=== PATIENT | female | born 1980 | race Caucasian/White ===

== ENCOUNTER 2017-04-23 12:48 | Inpatient (IN) | payer MEDICAID, MEDICARE ==
[~2017-04-23] VITALS: Ht 167.6 cm; Wt 80.3 kg
[~2017-04-23 12:48] MED LIST: ABIL1TAB12 PO; ABIL20TA2; ATIV0.5T OR; BENZ0.5T PO; CELE10TA PO; GABA100C PO; INVE9TAB PO; KLON0.5T PO; LITH45TASA PO; QUET30XR; RISP2TAB12 OR; RISP37INJ IM; RISP3TAB20 PO; [UNRECOGNIZED DRUG - CODE] PO
[2017-04-23 14:10] LABS: MEAN CORPUSCULAR HEMOGLOBIN 32.1 pg (27.0-33.0); MEAN CORPUSCULAR HGB CONC 35.6 g/dl (32.0-36.5); RED CELL DISTRIBUTION WIDTH 12.3 % (11.5-14.5); WHITE BLOOD COUNT 7.7 K/mm3 (4.0-10.0)
[2017-04-23 14:23] LABS: METHADONE URINE NEGATIVE (NEGATIVE)
[2017-04-23 14:25] LABS: CONTROL LINE HCG INT CTR LINE PRESENT
[2017-04-23 14:42] LABS: ALBUMIN/GLOBULIN RATIO 1.11 (1.00-1.93); ALKALINE PHOSPHATASE 107 U/L (45-117); ALT/SGPT 74 U/L (12-78); ANION GAP 7 MEQ/L (8-16); AST/SGOT 31 U/L (15-37); BILIRUBIN,DIRECT 0.2 MG/DL (0.0-0.2); BILIRUBIN,TOTAL 0.9 MG/DL (0.2-1.0); BLOOD UREA NITROGEN 7 MG/DL (7-18); CARBON DIOXIDE LEVEL 26 MEQ/L (21-32); CHLORIDE LEVEL 108 MEQ/L (98-107); CREATININE FOR GFR 0.71 MG/DL (0.55-1.02); GLOMERULAR FILTRATION RATE > 60.0 (>60); GLUCOSE, FASTING 80 MG/DL (70-105); POTASSIUM SERUM 3.5 MEQ/L (3.5-5.1); SODIUM LEVEL 141 MEQ/L (136-145); TOTAL PROTEIN 7.6 GM/DL (6.4-8.2)
[2017-04-23 15:02] LABS: LITHIUM LEVEL < 0.20 MEQ/L (0.60-1.20)
[2017-04-23] MEDS ORDERED: ARIP1TAB4 PO (16:10)
[2017-04-23] MEDS ORDERED: PALI1TAB2 PO (16:10)
[2017-04-23] MEDS ORDERED: LITH300C (16:10)
[2017-04-23] MEDS ORDERED: LITH150C (16:10)
[2017-04-23] MEDS ORDERED: PALI1TAB PO (16:10)
[2017-04-23] MEDS ORDERED: LITH150C PO (17:46)
[2017-04-23] MEDS ORDERED: PATIENT COMMENT (17:46)
[2017-04-23] MEDS ORDERED: HALOPERIDOL 5 MG TAB PO PRN (19:15)
[2017-04-23] MEDS ORDERED: MAALOX 30 ML SUSP *UDC PO PRN (19:15)
[2017-04-23] MEDS ORDERED: MOM 30ML SUSPENSION UDC PO PRN (19:15)
[2017-04-23] MEDS ORDERED: LORazepam 1 MG TAB PO PRN (19:15)
[2017-04-23] MEDS ORDERED: ACETAMINOPHEN TAB 650MG DOSE (2X325MG) PO PRN (19:15)
[2017-04-23] MEDS ORDERED: traZODone 50 MG TAB PO PRN (19:15)
[2017-04-23] MEDS ORDERED: ARIPiprazole 10 MG TAB PO SCH (21:00)
[2017-04-23 21:55] VITALS: BP 121/87
[2017-04-24 07:10] VITALS: BP 129/85
--- NOTE | 2017-04-24 09:18 | HPEPDOC ---
Medical History and Physical Date of Admission Apr 23, 2017 at 19:09 History and Physical PCP: Dr Campos ATTENDING: Dr. Ciaran Turner HPI: 37yoF admitted to [facility] for schizoaffective disorder, being medically examined today. No acute medical complaints today. Denies any fevers, chills, weakness, fatigue, FERMIN, CP, SOB, cough, palpitations, abdominal pain, N/V/D or changes in bowel or bladder habits. PMHx: Bipolar disorder Schizoaffective disorder Anxiety Depression Psychosis PSHX: Colposcopy Tubal ligation Colonoscopy SOCHX: Resides in: [facility] Marital Status: Kids: 3 Employment: Unemployed Tobacco use: Denies ETOH: Denies Illicit Drugs: Denies IV Drug Use: Denies Tattoos done unprofessionally: 1 FAMHX: Mother: Alive, well Father: Alive, hypertension Siblings: One brother , patient states overdose Children: Alive, unknown Unexpected deaths due to medical reasons: None. ROS: As noted in HPI, otherwise 11pt ROS of systems reviewed and remarkable only for LMP 03/30/17. PE: GEN: 37 yo F, appears stated age. Well-nourished, well developed. No acute distress. Anxious, avoids eye contact, tangential speech. HEENT: Normocephalic, atraumatic. Pupils are equal, round, and reactive to light. Extraocular movements are intact. No nystagmus appreciated. Sclera are nonicteric. Conjunctiva without injection. Nose midline. Nasal turbinates without bogginess. EACs both patent BL. TMs both visualized and frank with good cone of light, no bulging or erythema. No facial asymmetry. Moist mucous membranes. Dentition fair. Pharynx pink and moist, no cobblestoning. Neck supple , trachea midline. No lymphadenopathy or thyromegaly appreciated. CHEST: Regular rate and rhythm, +S1, +S2 LUNGS: Clear to auscultation bilaterally. No wheezes, rales, or rhonchi. Breathing appears symmetric and easy. Patient is speaking in full sentences. No accessory muscle use. ABD: Round, soft, non-tender, non-distended. +Bowel sounds throughout. No rebound or guarding. No costovertebral angle tenderness. EXT: Pulses 2+ bilaterally dorsalis pedis and radial. No lower extremity edema appreciated. SKIN: [place], dry, warm. Capillary refill <2sec. No rashes. NEURO: Alert and oriented x 3. Cranial nerves III-XII are intact. No focal deficits appreciated. EKG: Pending. A&P: 37yoF admitted to [facility] for schizoaffective disorder 1. Psych. Plan per Psychiatry. Obtain baseline EKG to assure the safety of psychiatric medications as they can prolong the QT interval. 2. Tattoo done unprofessionally. Patient agrees to HIV and hepatitis screening. 3. Follow up with PCP on discharge. 4. Staff member Mendoza present throughout exam. Vital Signs Vital Signs Date Time Temp Pulse Resp B/P (MAP) Pulse Ox O2 Delivery O2 Flow Rate FiO2 04/24/17 07:10 97.3 68 16 129/85 (100) 04/23/17 21:21 98 Laboratory Data Labs 24H Laboratory Tests 2 04/23/17 13:34: Anion Gap 7L, Glomerular Filtration Rate > 60.0, Calcium Level 9.0, Aspartate Amino Transf (AST/SGOT) 31, Alanine Aminotransferase (ALT/SGPT) 74, Alkaline Phosphatase 107, Total Bilirubin 0.9, Direct Bilirubin 0.2, Total Protein 7.6, Albumin 4.0, Albumin/Globulin Ratio 1.11, Thyroid Stimulating Hormone (TSH) 0.955, Human Chorionic Gonadotropin, Qual NEGATIVE, Salicylates Level < 1.7L, Acetaminophen Level < 2.0L, Winton Level < 0.20L, Ethyl Alcohol Level 0.003 04/23/17 13:41: Urine Amphetamines Screen NEGATIVE, Urine Benzodiazepines Screen NEGATIVE, Urine Opiates Screen NEGATIVE, Urine Methadone Screen NEGATIVE, Urine Barbiturates Screen NEGATIVE, Urine Phencyclidine Screen NEGATIVE, Urine Cocaine Metabolite Screen NEGATIVE, Urine Cannabinoids Screen NEGATIVE CBC/BMP Laboratory Tests 04/23/17 13:34 Red Blood Count 4.74, Mean Corpuscular Volume 90.0, Mean Corpuscular Hemoglobin 32.1, Mean Corpuscular Hemoglobin Concent 35.6, Red Cell Distribution Width 12.3 Home Medications Scheduled Aripiprazole (Aripiprazole) 2 Mg Tab, 2 MG PO QHS Winton Carbonate (Winton Carbonate) 150 Mg Cap, 150 MG PO QHS Paliperidone (Paliperidone ER) 3 Mg Tab, 3 MG PO DAILY DOSE INCREASED FROM 1.5MG TO 3MG, SUPPOSED TO START April Paliperidone (Paliperidone ER) 1.5 Mg Tab, 1.5 MG PO DAILY TAKING ONCE DAILY FOR 14 DAYS, THEN INCREASING TO 3MG ON April Miscellaneous Medications [Patient Comment] PT STATES HAS NOT HAD MEDS FOR A FEW DAYS, NEEDS TO TALK TO HER DOCTOR ABOUT THEM. Allergies Coded Allergies: No Known Allergies (Verified Allergy, Unknown, 08/02/08) Brissa Sultana Apr 24, 2017 09:18
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
[2017-04-24 18:00] VITALS: BP 138/85
[2017-04-24] MEDS ORDERED: PALIPERIDONE 3 MG ER TAB (INVEGA) PO SCH (21:00)
[2017-04-25 06:28] VITALS: BP 114/75
[2017-04-25] MEDS: SERTRALINE HCL 25 MG TABLET PO SCH (08:39)
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
[2017-04-25 18:00] VITALS: BP 124/81
[2017-04-26 06:30] VITALS: BP 109/60
[2017-04-26] MEDS: SERTRALINE HCL 25 MG TABLET PO SCH (08:02)
[2017-04-26 18:00] VITALS: BP 118/82
[2017-04-27 06:59] VITALS: BP 117/76
[2017-04-27] MEDS: SERTRALINE HCL 25 MG TABLET PO SCH (07:54)
--- NOTE | 2017-04-27 13:20 | IPN ---
DATE: 04/26/2017 CHIEF COMPLAINT: Says feels okay. SUBJECTIVE: Seen for followup, in the presence of staff. Says feels okay, but is somewhat vague about this, does say had a better night, but that difficulties with eating on occasions, related to the quality of air in the place. MENTAL STATUS EXAMINATION: Neat. Generally cooperative. No agitation. No psychomotor retardation. Displays no evidence of any thoughts of harming herself or anyone else. Some looseness of associations in terms of her thought are observed. Judgment is quite questionable, as is insight. ASSESSMENT: Schizoaffective disorder. PLAN: Continue current care and observations. Continue to encourage participation in the unit. VITAL SIGNS: Blood pressure 109/60. Pulse 70. Temperature 98.7.
[2017-04-27 18:00] VITALS: BP 113/80
[2017-04-28 07:25] VITALS: BP 110/72
[2017-04-28] MEDS: SERTRALINE HCL 25 MG TABLET PO SCH (08:09)
--- NOTE | 2017-04-28 08:45 | IPN ---
DATE: 04/27/2017 CHIEF COMPLAINT: Says feels okay. SUBJECTIVE: Is seen for followup in the presence of staff. Says feels okay but is a bit vague about this. Indicates woke up a little early, went back to sleep. She also spoke of a visitor yesterday, whom she is acquainted with. Suggests that there was food in the room, that disappeared, she is not quite sure what happened. MENTAL STATUS EXAMINATION: Neat, cooperative. No agitation. No psychomotor retardation. There is looseness of associations in her thoughts. Affect is restricted range. Denies any thoughts of harming herself. Does not appear to be internally preoccupied. No homicidal ideas or intents. Has delusions quite possibly. Judgment and insight remain compromised. ASSESSMENT: Schizoaffective disorder. PLAN: Continue current care, including sertraline, dapiprazole, both may need to be increased. She is to be encouraged to participate in activities in the unit.
[2017-04-28 18:15] VITALS: BP 119/73
[2017-04-28] MEDS: ARIPiprazole 15 MG TAB (AbiLIFY) PO SCH (20:10)
[2017-04-29 06:24] VITALS: BP 130/86
[2017-04-29] MEDS: SERTRALINE HCL 25 MG TABLET PO SCH (08:17)
--- NOTE | 2017-04-29 12:03 | IPN ---
DATE: 04/28/2017 37-year-old female with history of bipolar disorder, current episode mixed. Vital signs: Stable. New test results: There are no test results. CURRENT MEDICATIONS: Patient continues to be on a low dose of Zoloft, 25 mg by mouth daily and Abilify 7.5 mg by mouth daily at bedtime. The reason that she is on only 25 mg of Zoloft is because this automatic typewriter inspector does not want to activate her by giving her a higher dose of antidepressants since this could trigger sonal. She has requested today to this automatic typewriter inspector to decrease the Abilify to 5 mg by mouth daily at bedtime but this automatic typewriter inspector explained to her that is important for her to continue taking 7.5 mg by mouth daily at bedtime. MENTAL STATUS EXAMINATION: Patient is a 37-year-old female who is alert, cooperative, pleasant, oriented times three. Speech is spontaneous and fluent. Language skills are fair. Thought process is organized, rationale (a little bit less irrational than before). Language skills are fair. Thought content is coherent at this time. Description of association: There is no loosening of association. Abstract, reasoning and computation are fair. Description of abnormal or psychotic thoughts: She is less delusional, she continues to complain about physical problems, specifically related to her genitourinary and gastrointestinal systems. Her judgment and insight are slightly improving. Orientation: She is oriented times three. Recent and remote memory are intact. Attention span and concentration are fair. Language is normal. Fund of knowledge is fair. Mood: "I am doing better". Affect is congruent to mood. ASSESSMENT: Patient is less delusional, more organized than before. According to care managers, her mother has stated that she saw her doing well last Friday and they are willing to take her back home. Discharge will be discussed with patient tomorrow and if she is ready to leave, she will be discharged under the care of her parents. TIME SPENT: 30 minutes. ERICA
[2017-04-29 18:08] VITALS: BP 107/71
[2017-04-29] MEDS: ARIPiprazole 15 MG TAB (AbiLIFY) PO SCH (20:14)
[2017-04-30 06:47] VITALS: BP 123/71
[2017-04-30] MEDS: SERTRALINE HCL 25 MG TABLET PO SCH (08:01)
[2017-04-30] MEDS ORDERED: SERT25TA PO (09:48)
[2017-04-30] MEDS ORDERED: TRAZO50TA PO (09:48)
[2017-04-30] MEDS ORDERED: ARIP15TAB PO (09:48)
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
--- NOTE | 2017-04-30 14:53 | MHIPN ---
DATE OF SERVICE: 04/29/2017 37-year-old female with history of bipolar disorder. Vital signs: Stable. New test results: There are no test results. CURRENT MEDICATIONS: The patient continues to be on the same medications: Zoloft 25 mg by mouth daily and Abilify 7.5 mg by mouth nightly. MENTAL STATUS EXAMINATION: The patient is alert, oriented times three, cooperative with interview, pleasant, and engaging. Properly attired with good hygiene and good eye contact. Her speech is normal, coherent. Her thought process is intact and organized. Her thought process is coherent. The patient has no suicidal ideation and denies homicidal ideation. She denies thought delusions and denies auditory or visual hallucinations. Her attention and concentration are fair. Her memory is intact. Abstract thinking and computation are fair. Insight and judgment are fair. Impulse control is fair. ASSESSMENT: The patient has had a big improvement, and she is currently stable, not suicidal, not a danger to self or others. Discussed with the patient the possibility of discharging her tomorrow, and she has agreed. MANAGEMENT PLAN: Continue on the same medications and make arrangements for discharge tomorrow if the patient continues to be stable as she is now. Will monitor closely and will followup.
== END 2017-04-30 11:00 | disposition home or self-care (01) | DRG 885 ==
LOC: M ED 12:48 → M ED INP 19:09 → M PSY 21:53
PROVIDERS: ADMIT Psychiatry & Neurology Psychiatry; ATTEND Psychiatry & Neurology Psychiatry
DX: F25.0 Schizoaffective disorder, bipolar type (principal); F43.9 Reaction to severe stress, unspecified; Z79.899 Other long term (current) drug therapy; Z98.51 Tubal ligation status

== ENCOUNTER 2017-08-23 19:47 | Inpatient (IN) | payer MEDICARE, MEDICAID ==
[~2017-08-23] VITALS: Ht 167.6 cm; Wt 76.0 kg
[~2017-08-23 19:47] MED LIST changes: +ARIP15TAB PO; +ARIP1TAB4 PO; +LITH150C; +LITH150C PO; +LITH300C; +PALI1TAB PO; +PALI1TAB2 PO; +PATIENT COMMENT; +SERT25TA PO; +TRAZO50TA PO
[2017-08-23 21:33] LABS: MEAN CORPUSCULAR HEMOGLOBIN 30.8 pg (27.0-33.0); MEAN CORPUSCULAR HGB CONC 34.6 g/dl (32.0-36.5); MEAN CORPUSCULAR VOLUME 89.1 fl (80.0-96.0); PLATELET COUNT, AUTOMATED 260 10^3/uL (150-450); RED CELL DISTRIBUTION WIDTH 13.2 % (11.5-14.5); WHITE BLOOD COUNT 7.9 10^3/uL (4.0-10.0)
[2017-08-23 21:56] LABS: CONTROL LINE HCG INT CTR LINE PRESENT
[2017-08-23 21:58] LABS: METHADONE URINE NEGATIVE (NEGATIVE)
[2017-08-23 22:09] LABS: ALBUMIN 4.3 GM/DL (3.2-5.2); ALBUMIN/GLOBULIN RATIO 1.39 (1.00-1.93); ALKALINE PHOSPHATASE 86 U/L (45-117); ALT/SGPT 46 U/L (12-78); ANION GAP 10 MEQ/L (8-16); AST/SGOT 24 U/L (7-37); BILIRUBIN,DIRECT 0.2 MG/DL (0.0-0.2); BILIRUBIN,TOTAL 0.8 MG/DL (0.2-1.0); BLOOD UREA NITROGEN 8 MG/DL (7-18); CALCIUM LEVEL 9.2 MG/DL (8.5-10.1); CARBON DIOXIDE LEVEL 25 MEQ/L (21-32); CHLORIDE LEVEL 106 MEQ/L (98-107); GLOMERULAR FILTRATION RATE > 60.0 (>60); GLUCOSE, FASTING 84 MG/DL (70-105); POTASSIUM SERUM 3.4 MEQ/L (3.5-5.1); SODIUM LEVEL 141 MEQ/L (136-145); TOTAL PROTEIN 7.4 GM/DL (6.4-8.2)
[2017-08-23] MEDS ORDERED: MAALOX 30 ML SUSP *UDC PO PRN (23:00)
[2017-08-23] MEDS ORDERED: ACETAMINOPHEN TAB 650MG DOSE (2X325MG) PO PRN (23:00)
[2017-08-23] MEDS ORDERED: MOM 30ML SUSPENSION UDC PO PRN (23:00)
[2017-08-23] MEDS ORDERED: traZODone 50 MG TAB PO PRN (23:00)
[2017-08-23] MEDS ORDERED: OLANZapine ORAL DISINTEGRATING TAB 5MG PO PRN (23:00)
[2017-08-24 00:56] VITALS: BP 119/82
[2017-08-24 06:55] VITALS: BP 130/81
[2017-08-24] MEDS: LORazepam 1 MG TAB PO SCH ×3 (09:18→21:00)
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
[2017-08-24 18:00] VITALS: BP 134/70
[2017-08-25 06:00] VITALS: BP 125/72
--- NOTE | 2017-08-25 07:58 | HPE ---
DATE OF ADMISSION: 08/23/2017 DATE OF ADMISSION: HISTORY OF PRESENT ILLNESS: Please refer to the psychiatric history and evaluation for further details on this admission. This examination and history is intended for medical issues which may need treatment, followup or consultation on this 37-year-old female. ALLERGIES: No known drug allergies. SOCIAL HISTORY: She resides in [place]. She is . Does not drink alcohol. She does not use recreational drugs. She does not smoke cigarettes. PAST MEDICAL HISTORY: Bipolar disorder. Schizoaffective disorder. Anxiety. Depression. Psychosis. PAST SURGICAL HISTORY: section. Colposcopy. Tubal ligation. Colonoscopy. FAMILY HISTORY: Mother alive and well. Father alive, has hypertension. Siblings: One brother decreased patient states from overdose. HOME MEDICATIONS: None. LABORATORY DATA: CBC is normal. Sodium 141, potassium 3.4, chloride 106, CO2 25, BUN 3, creatinine 0.70. Toxicology was negative. REVIEW OF SYSTEMS: 10-systems review was done and was unremarkable. PHYSICAL EXAMINATION: [id number] cooperative female in no acute distress. Height 66 inches, weight 76 kg, BMI 27. The patient is alert and oriented times three. Pupils equal and reactive to light. Extraocular movements intact. Cornea and sclera clear. Conjunctiva normal. No facial asymmetry. Pharynx, tongue, and gums pink and moist. Tongue is midline. Neck is supple, without lymphadenopathy. No thyromegaly. No goiter Chest clear to auscultation, without wheeze or retraction. Heart is regular. Abdomen benign. Bowel sounds positive. /Rectal: Not done. Extremities show equal strength. Full range of motion. no cyanosis, clubbing or edema. Peripheral pulses equal and palpable bilaterally. Skin is warm and dry. Cranial nerves III through XII grossly intact. IMPRESSION AND PLAN: 1. Psychiatric: Plan per psychiatry. 2. No acute medical issues.
[2017-08-25] MEDS: LORazepam 1 MG TAB PO SCH ×3 (08:25→21:00)
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
[2017-08-25 18:00] VITALS: BP 118/78
[2017-08-26] MEDS: LORazepam 1 MG TAB PO SCH ×3 (07:40→21:00)
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
[2017-08-26 18:00] VITALS: BP 124/68
[2017-08-27 06:29] VITALS: BP 127/86
[2017-08-27] MEDS: LORazepam 1 MG TAB PO SCH (08:17)
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
[2017-08-27] MEDS ORDERED: OLAN5ZYD PO (12:04)
[2017-08-27] MEDS ORDERED: ARIP10TAB PO (12:04)
[2017-08-27] MEDS ORDERED: TRAZO50TA PO (12:04)
[2017-08-28] MEDS ORDERED: ARIPiprazole 10 MG TAB PO SCH (09:00)
== END 2017-08-27 13:00 | disposition home or self-care (01) | DRG 885 ==
LOC: M ED 21:01 → M ED INP 22:56 → M PSY 08-24 00:25
PROVIDERS: ADMIT Psychiatry & Neurology Psychiatry; ATTEND Psychiatry & Neurology Psychiatry
DX: F25.9 Schizoaffective disorder, unspecified (principal); F43.10 Post-traumatic stress disorder, unspecified; Z91.19 Patient's noncompliance with other medical treatment and regimen; Z79.899 Other long term (current) drug therapy; Z98.51 Tubal ligation status

== ENCOUNTER 2017-12-04 11:12 | Emergency (ER) | payer MEDICARE, MEDICAID | END 2017-12-04 12:25 | disposition home or self-care (01) | LOC: M ED 11:12 | DX: F43.0 Acute stress reaction (principal); F31.9 Bipolar disorder, unspecified; Z79.899 Other long term (current) drug therapy | CPT/HCPCS: 99284 ==

== ENCOUNTER 2017-12-05 11:02 | Inpatient (IN) | payer MEDICARE, MEDICAID ==
[2017-12-05] MEDS ORDERED: LORazepam 2 MG/ML VIAL (J2060) As Ordered (12:55)
[2017-12-05] MEDS ORDERED: HALOPERIDOL 5 MG/ML VIAL (J1630) As Ordered (12:55)
[2017-12-05] MEDS ORDERED: diphenhydrAMINE INJ 50MG/ML VIAL (J1200) IM (13:00)
[2017-12-05] MEDS ORDERED: HALOPERIDOL 5 MG/ML VIAL (J1630) IM (13:15)
[2017-12-05] MEDS ORDERED: LORazepam 2 MG/ML VIAL (J2060) IM (13:15)
[2017-12-05 13:17] LABS: HEMATOCRIT 45.4 % (36.0-47.0); HEMOGLOBIN 16.2 g/dl (12.0-16.0); MEAN CORPUSCULAR HEMOGLOBIN 31.6 pg (27.0-33.0); MEAN CORPUSCULAR HGB CONC 35.7 g/dl (32.0-36.5); MEAN CORPUSCULAR VOLUME 88.5 fl (80.0-96.0); PLATELET COUNT, AUTOMATED 343 10^3/uL (150-450); RED BLOOD COUNT 5.13 10^6/uL (4.00-5.40); RED CELL DISTRIBUTION WIDTH 12.5 % (11.5-14.5); WHITE BLOOD COUNT 14.4 10^3/uL (4.0-10.0)
[2017-12-05 13:48] LABS: AMPHETAMINES LEVEL URINE NEGATIVE (NEGATIVE); BARBITURATES URINE NEGATIVE (NEGATIVE); BENZODIAZEPINES URINE NEGATIVE (NEGATIVE); CANNABINOIDS URINE NEGATIVE (NEGATIVE); COCAINE METABOLITE URINE NEGATIVE (NEGATIVE); METHADONE URINE NEGATIVE (NEGATIVE); OPIATES URINE NEGATIVE (NEGATIVE); PHENCYCLIDINE URINE NEGATIVE (NEGATIVE)
[2017-12-05 13:57] LABS: ALBUMIN/GLOBULIN RATIO 1.39 (1.00-1.93); ALKALINE PHOSPHATASE 102 U/L (45-117); ALT/SGPT 37 U/L (12-78); ANION GAP 11 MEQ/L (8-16); AST/SGOT 23 U/L (7-37); BILIRUBIN,DIRECT 0.2 MG/DL (0.0-0.2); BLOOD UREA NITROGEN 18 MG/DL (7-18); CALCIUM LEVEL 9.1 MG/DL (8.5-10.1); CARBON DIOXIDE LEVEL 21 MEQ/L (21-32); CHLORIDE LEVEL 110 MEQ/L (98-107); CREATININE FOR GFR 0.84 MG/DL (0.55-1.30); ETHYL ALCOHOL (ETHANOL) < 0.003 % (0.000-0.010); GLOMERULAR FILTRATION RATE > 60.0 (>60); GLUCOSE, FASTING 107 MG/DL (70-100); SALICYLATE LEVEL < 1.7 MG/DL (5.0-30.0); SODIUM LEVEL 142 MEQ/L (136-145); TOTAL PROTEIN 8.6 GM/DL (6.4-8.2)
[2017-12-05 14:09] LABS: ACETAMINOPHEN LEVEL < 2.0 UG/ML (10.0-30.0)
[2017-12-05] MEDS: LORazepam 2 MG TAB PO (15:30)
[2017-12-05] MEDS ORDERED: MAALOX 30 ML SUSP *UDC PO (18:15)
[2017-12-05] MEDS ORDERED: MOM 30ML SUSPENSION UDC PO (18:15)
[2017-12-05] MEDS ORDERED: OLANZapine ORAL DISINTEGRATING TAB 5MG PO (18:15)
[2017-12-05] MEDS ORDERED: traZODone 50 MG TAB PO (18:15)
[2017-12-05] MEDS ORDERED: ACETAMINOPHEN TAB 650MG DOSE (2X325MG) PO (18:15)
[2017-12-06] MEDS: ARIPiprazole 2 MG TAB PO (20:03)
[2017-12-07] MEDS: ARIPiprazole 2 MG TAB PO (20:26)
[2017-12-07] MEDS: LORazepam 0.5 MG TAB PO (22:09)
[2017-12-08 12:07] LABS: HEPATITIS B SURFACE ANTIGEN NEGATIVE (NEGATIVE)
[2017-12-08 12:33] LABS: HEPATITIS C VIRUS ABY INDEX 0.1 INDEX (<0.8)
[2017-12-08 12:34] LABS: HEPATITIS B CORE ANTIBODY IGM NEGATIVE (NEGATIVE); HIV 1&2 SCREEN CENTAUR NEGATIVE (NEGATIVE)
[2017-12-08 12:35] LABS: HEPATITIS A ANTIBODY IGM NEGATIVE (NEGATIVE)
[2017-12-08] MEDS: ARIPiprazole 2 MG TAB PO (20:06)
[2017-12-09] MEDS: LORazepam 0.5 MG TAB PO ×2 (05:54→23:05)
[2017-12-09] MEDS: ARIPiprazole 2 MG TAB PO (20:48)
[2017-12-10 10:28] LABS: HEMATOCRIT 40.8 % (36.0-47.0); HEMOGLOBIN 14.4 g/dl (12.0-16.0); MEAN CORPUSCULAR HEMOGLOBIN 31.2 pg (27.0-33.0); MEAN CORPUSCULAR HGB CONC 35.3 g/dl (32.0-36.5); MEAN CORPUSCULAR VOLUME 88.5 fl (80.0-96.0); PLATELET COUNT, AUTOMATED 209 10^3/uL (150-450); RED BLOOD COUNT 4.61 10^6/uL (4.00-5.40); RED CELL DISTRIBUTION WIDTH 12.3 % (11.5-14.5)
[2017-12-10] MEDS: ARIPiprazole 2 MG TAB PO (20:18)
[2017-12-12] MEDS: ARIPiprazole 10 MG TAB PO (21:00)
[2017-12-13] MEDS: ARIPiprazole 10 MG TAB PO ×2 (08:18→19:34)
[2017-12-14] MEDS: ARIPiprazole 10 MG TAB PO ×2 (08:09→20:10)
[2017-12-15] MEDS: ARIPiprazole 10 MG TAB PO ×2 (08:04→20:31)
[2017-12-15] MEDS: QUEtiapine FUMARATE 100 MG TAB PO ×2 (09:00→15:59)
[2017-12-15] MEDS: PALIPERIDONE 3 MG ER TAB (INVEGA) PO (20:33)
[2017-12-16] MEDS: PALIPERIDONE 3 MG ER TAB (INVEGA) PO ×2 (08:04→20:01)
[2017-12-16] MEDS: ARIPiprazole 10 MG TAB PO ×2 (08:04→20:01)
[2017-12-16 11:40] LABS: CHOLESTEROL LEVEL 155 MG/DL (<200); CHOLESTEROL RISK RATIO 2.924 (<5); HDL CHOLESTEROL 53 MG/DL (>40); NON-HDL-C 102 MG/DL; TRIGLYCERIDES LEVEL 155 MG/DL (<150)
[2017-12-16 12:11] LABS: ESTIMATED AVERAGE GLUCOSE 88 MG/DL (60-110); HEMOGLOBIN A1c 4.7 %
[2017-12-16 15:59] LABS: ALBUMIN 3.8 GM/DL (3.2-5.2); ALBUMIN/GLOBULIN RATIO 1.23 (1.00-1.93); ALKALINE PHOSPHATASE 88 U/L (45-117); ALT/SGPT 38 U/L (12-78); ANION GAP 12 MEQ/L (8-16); AST/SGOT 20 U/L (7-37); BASO # 0.1 10^3/uL (0.0-0.2); BASO % 1.4 % (0.0-1.0); BILIRUBIN,DIRECT < 0.1 MG/DL (0.0-0.2); BILIRUBIN,TOTAL 0.4 MG/DL (0.2-1.0); BLOOD UREA NITROGEN 12 MG/DL (7-18); CALCIUM LEVEL 8.8 MG/DL (8.5-10.1); CARBON DIOXIDE LEVEL 22 MEQ/L (21-32); CHLORIDE LEVEL 109 MEQ/L (98-107); CREATININE FOR GFR 0.71 MG/DL (0.55-1.30); EOS # 0.1 10^3/uL (0.0-0.50); EOS % 1.8 % (0.0-3.0); GLOMERULAR FILTRATION RATE > 60.0 (>60); GLUCOSE, FASTING 71 MG/DL (70-100); HEMATOCRIT 42.4 % (36.0-47.0); HEMOGLOBIN 14.8 g/dl (12.0-16.0); IMMATURE GRANULOCYTE % 0.3 % (0-3.0); LYMPH # 1.5 10^3/uL (1.5-4.5); LYMPH % 21.9 % (24.0-44.0); MEAN CORPUSCULAR HEMOGLOBIN 31.6 pg (27.0-33.0); MEAN CORPUSCULAR HGB CONC 34.9 g/dl (32.0-36.5); MEAN CORPUSCULAR VOLUME 90.4 fl (80.0-96.0); MONO # 0.5 10^3/uL (0.0-0.8); NEUTROPHILS # 4.4 10^3/uL (1.8-7.7); NEUTROPHILS % 66.6 % (36.0-66.0); PLATELET COUNT, AUTOMATED 165 10^3/uL (150-450); POTASSIUM SERUM 3.8 MEQ/L (3.5-5.1); RED BLOOD COUNT 4.69 10^6/uL (4.00-5.40); RED CELL DISTRIBUTION WIDTH 12.8 % (11.5-14.5); SODIUM LEVEL 143 MEQ/L (136-145); TOTAL PROTEIN 6.9 GM/DL (6.4-8.2); WHITE BLOOD COUNT 6.6 10^3/uL (4.0-10.0)
[2017-12-17] MEDS: LORazepam 0.5 MG TAB PO (02:19)
[2017-12-17] MEDS: PALIPERIDONE 3 MG ER TAB (INVEGA) PO ×2 (08:02→20:19)
[2017-12-17] MEDS: ARIPiprazole 10 MG TAB PO ×2 (08:02→20:19)
[2017-12-18] MEDS: ARIPiprazole 10 MG TAB PO (08:07)
[2017-12-18] MEDS: PALIPERIDONE 3 MG ER TAB (INVEGA) PO (08:07)
== END 2017-12-18 11:30 | disposition home or self-care (01) | DRG 885 ==
LOC: M PSY 12-08 17:18 → M ED 11:02 → M PSY 16:55
DX: F25.0 Schizoaffective disorder, bipolar type (principal); D72.829 Elevated white blood cell count, unspecified

== ENCOUNTER → 2018-01-20 | Outpatient (REF) | payer MEDICARE, MEDICAID ==
[2018-01-20 22:12] LABS: CHLAMYDIA DNA AMPLIFICATION NEGATIVE (NEGATIVE); GC DNA AMPLIFICATION NEGATIVE (NEGATIVE)
== END ==
LOC: M SFHCPLAZ 17:05
DX: Z01.419 Encounter for gynecological examination (general) (routine) without abnormal findings (principal)
CPT/HCPCS: 87591

== ENCOUNTER → 2018-01-20 | Outpatient (REF) | payer MEDICARE, MEDICAID | LOC: M LAB REF 17:52 | DX: Z12.4 Encounter for screening for malignant neoplasm of cervix (principal); R87.5 Abnormal microbiological findings in specimens from female genital organs | CPT/HCPCS: G0123 ==

== ENCOUNTER → 2018-03-04 | Outpatient (CLI) | payer MEDICARE, MEDICAID ==
[2018-03-04 10:28] LABS: CHOLESTEROL LEVEL 177 MG/DL (<200); CHOLESTEROL RISK RATIO 3.339 (<5); HDL CHOLESTEROL 53 MG/DL (>40); LDL CHOLESTEROL 87.8 MG/DL (<100); NON-HDL-C 124 MG/DL; TRIGLYCERIDES LEVEL 181 MG/DL (<150)
[2018-03-04 10:39] LABS: ESTIMATED AVERAGE GLUCOSE 82 MG/DL (60-110); HEMOGLOBIN A1c 4.5 %
== END ==
LOC: M LAB 09:18
DX: Z13.220 Encounter for screening for lipoid disorders (principal); Z79.899 Other long term (current) drug therapy; Z13.29 Encounter for screening for other suspected endocrine disorder
CPT/HCPCS: 84443

== ENCOUNTER → 2018-04-17 | Outpatient (CLI) | payer MEDICARE, MEDICAID | LOC: M WHC 13:07 | DX: Z12.31 Encounter for screening mammogram for malignant neoplasm of breast (principal) | CPT/HCPCS: 77067 ==

== ENCOUNTER 2018-05-19 08:25 | Day surgery (SDC) | payer MEDICARE, MEDICAID ==
[~2018-05-19 08:25] MED LIST changes: -ABIL1TAB12 PO; -ABIL20TA2; -ARIP15TAB PO; -ARIP1TAB4 PO; -ATIV0.5T OR; -BENZ0.5T PO; -CELE10TA PO; -GABA100C PO; -INVE9TAB PO; -KLON0.5T PO; +LIDOCAINE 2% INJ 100 MG/5 ML SDV (FOR ANES.) As Ordered; -LITH150C; -LITH150C PO; -LITH300C; -LITH45TASA PO; -PALI1TAB PO; -PALI1TAB2 PO; -PATIENT COMMENT; +PROPOFOL 200 MG/20 ML VIAL As Ordered; -QUET30XR; -RISP2TAB12 OR; -RISP37INJ IM; -RISP3TAB20 PO; -SERT25TA PO; -TRAZO50TA PO; -[UNRECOGNIZED DRUG - CODE] PO
[2018-05-19] MEDS: NS 1,000 ML IV (10:05)
== END 2018-05-19 11:15 | disposition home or self-care (01) ==
LOC: M OPP 08:25
DX: Z12.11 Encounter for screening for malignant neoplasm of colon (principal); Z86.010 Personal history of colon polyps; K64.8 Other hemorrhoids; F41.9 Anxiety disorder, unspecified; F31.9 Bipolar disorder, unspecified; F20.9 Schizophrenia, unspecified; R06.83 Snoring; Z91.040 Latex allergy status; Z79.899 Other long term (current) drug therapy
CPT/HCPCS: G0105

== ENCOUNTER → 2020-02-23 | Outpatient (REF) | payer MEDICARE, MEDICAID ==
[~2020-02-23] MED LIST changes: +ABIL1TAB12 PO; +ABIL20TA2; +ARIP1TAB PO; +ARIP1TAB10 PO; +ARIP1TAB4 PO; +ATIV0.5T OR; +BENZ0.5T23 PO; +CELE10TA PO; +GABA100C PO; +INVE117I IM; +INVE9TAB PO; +KLON0.5T PO; -LIDOCAINE 2% INJ 100 MG/5 ML SDV (FOR ANES.) As Ordered; +LITH150C; +LITH150C PO; +LITH300C; +LITH45TASA PO; +OLAN5ZYD PO; +PALI1TAB PO; +PALI1TAB2 PO; +PATIENT COMMENT; -PROPOFOL 200 MG/20 ML VIAL As Ordered; +RISP2TAB12 OR; +RISP37INJ IM; +RISP3TAB20 PO; +SERO300T20; +SERT25TA85 PO; +TRAZ1TAB10 PO; +[UNRECOGNIZED DRUG - CODE] PO
[2020-02-23 17:06] LABS: CHLAMYDIA DNA AMPLIFICATION NEGATIVE (NEGATIVE); GC DNA AMPLIFICATION NEGATIVE (NEGATIVE)
== END ==
LOC: M SFHCPLAZ 15:11
PROVIDERS: ATTEND Obstetrics & Gynecology
DX: Z01.419 Encounter for gynecological examination (general) (routine) without abnormal findings (principal); Z11.9 Encounter for screening for infectious and parasitic diseases, unspecified
CPT/HCPCS: 87661; G0101; G0123

== ENCOUNTER → 2020-03-08 | Outpatient (REF) | payer MEDICARE, MEDICAID | LOC: M SFHCPLAZ 11:16 | PROVIDERS: ATTEND Family Medicine | DX: F25.0 Schizoaffective disorder, bipolar type (principal); Z13.1 Encounter for screening for diabetes mellitus; Z13.220 Encounter for screening for lipoid disorders ==

== ENCOUNTER → 2020-03-09 | Outpatient (CLI) | payer MEDICARE, MEDICAID ==
[2020-03-10 10:33] LABS: HIV 1&2 SCREEN CENTAUR NEGATIVE (NEGATIVE)
[2020-03-12 13:07] LABS: HSV-1 DNA Negative (Negative); HSV-2 DNA Negative (Negative)
== END ==
LOC: M LAB 07:57
PROVIDERS: ATTEND Obstetrics & Gynecology
DX: Z11.9 Encounter for screening for infectious and parasitic diseases, unspecified (principal)

== ENCOUNTER → 2020-03-10 | Outpatient (CLI) | payer MEDICARE, MEDICAID ==
[2020-03-10 12:18] LABS: BLOOD UREA NITROGEN 7 MG/DL (7-18); CARBON DIOXIDE LEVEL 26 MEQ/L (21-32); CHLORIDE LEVEL 108 MEQ/L (98-107); CHOLESTEROL LEVEL 165 MG/DL (<200); CHOLESTEROL RISK RATIO 2.844 (<5); CREATININE FOR GFR 0.69 MG/DL (0.55-1.30); GLOMERULAR FILTRATION RATE > 60.0 (>58); GLUCOSE, FASTING 88 MG/DL (70-100); HDL CHOLESTEROL 58 MG/DL (>40); LDL CHOLESTEROL 88 MG/DL (<100); NON-HDL-C 107 MG/DL; POTASSIUM SERUM 3.6 MEQ/L (3.5-5.1); SODIUM LEVEL 141 MEQ/L (136-145); TRIGLYCERIDES LEVEL 93 MG/DL (<150)
== END ==
LOC: M LAB 10:51
PROVIDERS: ATTEND Obstetrics & Gynecology
DX: Z13.220 Encounter for screening for lipoid disorders (principal); Z13.1 Encounter for screening for diabetes mellitus

== ENCOUNTER → 2020-10-09 | Outpatient (REF) | payer MEDICARE, MEDICAID | LOC: M SFHCPLAZ 11:31 | PROVIDERS: ATTEND Family Medicine | DX: Z20.2 Contact with and (suspected) exposure to infections with a predominantly sexual mode of transmission (principal); Z79.899 Other long term (current) drug therapy | CPT/HCPCS: 81002; 87086; 87490; 87590; 87661; G0463 ==

== ENCOUNTER → 2020-10-23 | Outpatient (CLI) | payer MEDICARE, MEDICAID ==
[2020-10-23 16:53] LABS: APPEARANCE, URINE CLEAR (CLEAR); BACTERIA, URINE AUTO NEGATIVE (NEGATIVE); BILIRUBIN, URINE AUTO NEGATIVE (NEGATIVE); BLOOD, URINE BLOOD NEGATIVE (NEGATIVE); COLOR, URINE YELLOW (YELLOW); GLUCOSE, URINE (UA) AUTO NEGATIVE (NEGATIVE); KETONE, URINE AUTO NEGATIVE (NEGATIVE); LEUKOCYTE ESTERASE, URINE AUTO NEGATIVE (NEGATIVE); NITRITE, URINE AUTO NEGATIVE (NEGATIVE); PROTEIN, URINE AUTO NEGATIVE (NEGATIVE); RBC, URINE AUTO 9 /HPF (0-3); SPECIFIC GRAVITY URINE AUTO 1.018 (1.002-1.035); SQUAMOUS EPITHELIAL CELL UR AU 0 /HPF (0-6); UROBILINOGEN, URINE AUTO 0.2 mg/dL (0.0-2.0); WBC, URINE AUTO 1 /HPF (0-3)
[2020-10-23 17:59] LABS: HEPATITIS B CORE ANTIBODY IGM NEGATIVE (NEGATIVE); HEPATITIS B SURFACE ANTIBODY NEGATIVE (POSITIVE); HEPATITIS B SURFACE ANTIGEN NEGATIVE (NEGATIVE); HEPATITIS C VIRUS ABY INDEX < 0.0 INDEX (<0.8); HIV 1&2 SCREEN CENTAUR NEGATIVE (NEGATIVE)
[2020-10-23 18:44] LABS: CHLAMYDIA DNA AMPLIFICATION NEGATIVE (NEGATIVE); GC DNA AMPLIFICATION NEGATIVE (NEGATIVE)
== END ==
LOC: M LAB 15:48
PROVIDERS: ATTEND Student in an Organized Health Care Education/Training Program
DX: Z20.2 Contact with and (suspected) exposure to infections with a predominantly sexual mode of transmission (principal); Z79.899 Other long term (current) drug therapy
CPT/HCPCS: 36415; 81001; 86705; 86706; 86780; 86803; 87086; 87340; 87389; 87661; G0463

== ENCOUNTER 2020-10-28 21:45 | Emergency (ER) | payer MEDICARE, MEDICAID ==
[~2020-10-28] VITALS: Ht 167.6 cm; Wt 79.6 kg
[2020-10-28 23:30] VITALS: BP 132/67
== END 2020-10-28 23:52 | disposition home or self-care (01) ==
LOC: M ED 21:45
DX: Z71.2 Person consulting for explanation of examination or test findings (principal)

== ENCOUNTER 2020-10-30 15:54 | Emergency (ER) | payer MEDICARE, MEDICAID ==
[~2020-10-30] VITALS: Ht 167.6 cm; Wt 79.0 kg
--- NOTE | 2020-10-30 17:08 | REP ---
INDICATION: CHEST PAIN. COMPARISON: No comparison study. TECHNIQUE: Portable upright AP chest radiograph. FINDINGS: The lungs are well inflated and free of infiltrate. Pleural angles are sharp. Heart size is normal. Pulmonary vasculature is not increased. EKG monitoring electrodes are seen. IMPRESSION: No active disease. <Electronically signed by Christopher Adams > 10/30/20 [id number]
[2020-10-30 18:11] LABS: ALT/SGPT 54 U/L (12-78); BILIRUBIN,DIRECT 0.1 MG/DL (0.0-0.2); BILIRUBIN,TOTAL 0.6 MG/DL (0.2-1.0); BLOOD UREA NITROGEN 13 MG/DL (7-18); CALCIUM LEVEL 9.3 MG/DL (8.5-10.1); CARBON DIOXIDE LEVEL 24 MEQ/L (21-32); CHLORIDE LEVEL 108 MEQ/L (98-107); CREATININE FOR GFR 0.76 MG/DL (0.55-1.30); FREE T4 1.19 NG/DL (0.76-1.46); GLOMERULAR FILTRATION RATE > 60.0 (>58); GLUCOSE, FASTING 88 MG/DL (70-100); LIPASE 60 U/L (73-393); POTASSIUM SERUM 4.1 MEQ/L (3.5-5.1); SODIUM LEVEL 142 MEQ/L (136-145); THYROID STIMULATING HORMONE 0.966 uIU/ML (0.358-3.740); TOTAL PROTEIN 7.3 GM/DL (6.4-8.2)
[2020-10-30 19:54] LABS: BASO # 0.1 10^3/uL (0.0-0.2); BASO % 1.2 % (0.0-1.0); EOS # 0.1 10^3/uL (0.0-0.5); EOS % 1.6 % (0.0-3.0); HEMATOCRIT 45.9 % (36.0-47.0); HEMOGLOBIN 15.1 g/dl (12.0-15.5); LYMPH # 2.2 10^3/uL (1.5-5.0); LYMPH % 25.1 % (24.0-44.0); MEAN CORPUSCULAR HGB CONC 32.9 g/dl (32.0-36.5); MEAN CORPUSCULAR VOLUME 88.1 fl (80.0-96.0); MONO # 0.6 10^3/uL (0.0-0.8); MONO % 6.6 % (0.0-5.0); NEUTROPHILS # 5.7 10^3/uL (1.5-8.5); NEUTROPHILS % 65.2 % (36.0-66.0); PLATELET COUNT, AUTOMATED 260 10^3/uL (150-450); RED BLOOD COUNT 5.21 10^6/uL (4.00-5.40); WHITE BLOOD COUNT 8.7 10^3/uL (4.0-10.0)
[2020-10-30 20:07] VITALS: BP 124/73
--- NOTE | 2020-11-01 14:27 | ECGEPIP ---
[facility] - ED Test Date: 2020-10-30 Pat Name: HALEY ESCUDERO Department: Room: - Gender: Female Exhaust And Muffler Fitter: STUART : 1980 Requested By: Hallie Dodson Order Number: [id number] Reading MD: Hallie Dodson Measurements Intervals [place] Rate: 66 P: 67 SC: 128 QRS: 62 QRSD: 89 T: 55 QT: 396 QTc: 417 Interpretive Statements SINUS RHYTHM SIMILAR 12/21/14 Electronically Signed on 11-01-2020 14:27:10 EST by Hallie Dodson
--- NOTE | 2020-11-01 14:30 | ECGEPIP ---
[facility] - ED Test Date: 2020-10-30 Pat Name: HALEY ESCUDERO Department: Room: - Gender: Female Chief Electrician: virgil : 1980 Requested By: Amaris Luque Order Number: [id number] Reading MD: Hallie Dodson Measurements Intervals [place] Rate: 64 P: 58 CT: 122 QRS: 54 QRSD: 90 T: 39 QT: 413 QTc: 429 Interpretive Statements SINUS RHYTHM SIMILAR 10/30/20 Electronically Signed on 11-01-2020 14:30:25 EST by Hallie Dodson
== END 2020-10-30 20:22 | disposition home or self-care (01) ==
LOC: M ED 15:54 → EDBD 15:54 → M ED 20:22
DX: R07.9 Chest pain, unspecified (principal); F15.10 Other stimulant abuse, uncomplicated; Z91.040 Latex allergy status

== ENCOUNTER → 2020-12-18 | Outpatient (CLI) | payer MEDICARE, MEDICAID ==
[2020-12-18 12:09] LABS: HEPATITIS B SURFACE ANTIBODY NEGATIVE (POSITIVE); HEPATITIS B SURFACE ANTIGEN NEGATIVE (NEGATIVE); HIV 1&2 SCREEN CENTAUR NEGATIVE (NEGATIVE)
[2020-12-20 23:07] LABS: HEPATITIS B CORE ANTIBODY IGG Negative (Negative); HEPATITIS C QUANTITATION HCV Not Detected IU/mL (.)
== END ==
LOC: M LAB 10:00
PROVIDERS: ATTEND Student in an Organized Health Care Education/Training Program
DX: Z72.51 High risk heterosexual behavior (principal); Z91.89 Other specified personal risk factors, not elsewhere classified; Z91.19 Patient's noncompliance with other medical treatment and regimen; R39.15 Urgency of urination; Z20.2 Contact with and (suspected) exposure to infections with a predominantly sexual mode of transmission

== ENCOUNTER → 2020-12-24 | Outpatient (REF) | payer MEDICARE, MEDICAID | LOC: M SFHCPLAZ 09:49 | PROVIDERS: ATTEND Family Medicine | DX: Z72.51 High risk heterosexual behavior (principal) ==

== ENCOUNTER 2023-06-03 16:46 | Inpatient (IN) | payer MEDICARE, MEDICAID ==
[~2023-06-03] VITALS: Ht 167.6 cm; Wt 80.0 kg
[~2023-06-03 16:46] MED LIST changes: +BENZ0.5T2 PO; -BENZ0.5T23 PO
[2023-06-03] MEDS ORDERED: LORazepam 2 MG/ML 1ML VIAL IM STA (17:02)
[2023-06-03] MEDS ORDERED: OLANZapine INTRAMUSCULAR 10MG VIAL IM ONE (17:05)
[2023-06-03 19:37] LABS: HEMATOCRIT 40.8 % (36.0-47.0); HEMOGLOBIN 14.3 g/dl (12.0-15.5); MEAN CORPUSCULAR VOLUME 88.3 fl (80.0-96.0); PLATELET COUNT, AUTOMATED 186 10^3/uL (150-450); RED BLOOD COUNT 4.62 10^6/uL (4.00-5.40); WHITE BLOOD COUNT 4.5 10^3/uL (4.0-10.0)
[2023-06-03 19:48] LABS: METHADONE URINE NEGATIVE (NEGATIVE); OPIATES URINE NEGATIVE (NEGATIVE)
[2023-06-03 19:49] LABS: AMPHETAMINES LEVEL URINE NEGATIVE (NEGATIVE); BARBITURATES URINE NEGATIVE (NEGATIVE); BENZODIAZEPINES URINE NEGATIVE (NEGATIVE); CANNABINOIDS URINE NEGATIVE (NEGATIVE); COCAINE METABOLITE URINE NEGATIVE (NEGATIVE); PHENCYCLIDINE URINE NEGATIVE (NEGATIVE)
[2023-06-03 19:52] LABS: ETHYL ALCOHOL (ETHANOL) < 0.003 % (0.000-0.010)
[2023-06-03 19:53] LABS: ACETAMINOPHEN LEVEL < 2.0 UG/ML (10.0-20.0)
[2023-06-03 19:54] LABS: ALBUMIN 3.7 G/DL (3.2-5.2); ALKALINE PHOSPHATASE 83 U/L (46-116); ALT/SGPT 21 U/L (7.0-40); AST/SGOT 17 U/L (<34); BILIRUBIN,DIRECT 0.2 MG/DL (<0.4); BILIRUBIN,TOTAL 0.6 MG/DL (0.3-1.2); BLOOD UREA NITROGEN 8 MG/DL (9-23); CALCIUM LEVEL 8.8 MG/DL (8.5-10.1); CARBON DIOXIDE LEVEL 22 MMOL/L (20-31); CHLORIDE LEVEL 107 MMOL/L (98-107); CREATININE FOR GFR 0.76 MG/DL (0.55-1.30); GLOMERULAR FILTRATION RATE > 60.0 (>58); GLUCOSE, FASTING 100 MG/DL (60-100); HCG, SERUM QUALITATIVE NEGATIVE (NEGATIVE); POTASSIUM SERUM 3.3 MMOL/L (3.5-5.1); SALICYLATE LEVEL < 3.0 MG/DL (<30); SODIUM LEVEL 140 MMOL/L (136-145); TOTAL PROTEIN 6.7 G/DL (5.7-8.2)
[2023-06-03 19:56] LABS: THYROID STIMULATING HORMONE 0.805 uIU/ML (0.55-4.78)
[2023-06-03] MEDS ORDERED: MED REC CURRENTLY UNOBTAINABLE XX SCH (20:55)
[2023-06-04] MEDS ORDERED: POTASSIUM CHLORIDE 10MEQ SR TABLET PO ONE (07:20)
[2023-06-04] MEDS ORDERED: HOME MED LIST COMPLETE! XX SCH (10:20)
[2023-06-04] MEDS ORDERED: ACETAMINOPHEN TAB 650MG DOSE (2X325MG) PO PRN (13:10)
[2023-06-04] MEDS ORDERED: traZODone 50 MG TAB PO PRN (13:10)
[2023-06-04] MEDS ORDERED: MOM 30ML SUSPENSION UDC PO PRN (13:10)
[2023-06-04] MEDS ORDERED: MAALOX 30 ML SUSP *UDC PO PRN (13:10)
[2023-06-04] MEDS ORDERED: IBUPROFEN 400MG TAB PO PRN (13:10)
[2023-06-04 14:31] VITALS: BP 114/71; TEMP 98.9; O2SAT 97
[2023-06-04] MEDS: OLANZapine 10 MG TAB PO SCH (16:00)
[2023-06-04] MEDS ORDERED: diphenhydrAMINE 50MG CAP PO STA (21:30)
[2023-06-04] MEDS ORDERED: LORazepam 2 MG TAB PO STA (21:30)
[2023-06-05 06:33] VITALS: BP 113/74; TEMP 96.9; O2SAT 99
[2023-06-05] MEDS: OLANZapine 10 MG TAB PO SCH (08:47)
[2023-06-05] MEDS ORDERED: PALIPERIDONE 6MG ER TAB (INVEGA) PO SCH (09:00)
[2023-06-05 18:05] VITALS: BP 111/64; TEMP 97.5; O2SAT 98
[2023-06-05] MEDS: diphenhydrAMINE 25MG CAP PO PRN (20:42)
[2023-06-06 06:22] VITALS: BP 128/83; TEMP 97.5; O2SAT 98
[2023-06-06] MEDS: OLANZapine 5 MG TAB PO SCH (08:02)
[2023-06-06] MEDS: PALIPERIDONE 3MG ER TAB (INVEGA) PO SCH (08:02)
[2023-06-06 19:07] VITALS: BP 132/83; TEMP 97
[2023-06-07 06:30] VITALS: BP 135/90; TEMP 96.4; O2SAT 98
[2023-06-07] MEDS: OLANZapine 5 MG TAB PO SCH (07:22)
[2023-06-07] MEDS: PALIPERIDONE 3MG ER TAB (INVEGA) PO SCH (07:22)
[2023-06-07 18:19] VITALS: BP 108/68; TEMP 98.1; O2SAT 100
[2023-06-07] MEDS: diphenhydrAMINE 25MG CAP PO PRN (20:53)
[2023-06-08] VITALS (11 sets, daily range): BP systolic 109–150; BP diastolic 66–88; TEMP 96–98.3; O2SAT 96–100
[2023-06-08] MEDS ORDERED: UNRESOLVED CLARIFICATION ENTRY XX SCH (00:01)
[2023-06-08] MEDS: PALIPERIDONE 3MG ER TAB (INVEGA) PO SCH (08:02)
[2023-06-08] MEDS: diphenhydrAMINE 25MG CAP PO PRN ×2 (09:10→15:09)
[2023-06-08] MEDS ORDERED: PALIPERIDONE 3MG ER TAB (INVEGA) PO STA (14:17)
[2023-06-08] MEDS ORDERED: LORazepam 2 MG/ML 1ML VIAL IM STA (17:48)
[2023-06-08] MEDS ORDERED: HALOPERIDOL 5MG/ML 1ML VIAL IM STA (17:48)
[2023-06-08] MEDS ORDERED: diphenhydrAMINE 50MG/ML VIAL IM STA (17:48)
[2023-06-09] MEDS ORDERED: PALIPERIDONE 6MG ER TAB (INVEGA) PO SCH (09:00)
[2023-06-09] MEDS ORDERED: PALIPERIDONE 3MG ER TAB (INVEGA) PO SCH (09:00)
[2023-06-10 06:09] VITALS: BP 114/79; TEMP 97.8; O2SAT 97
[2023-06-10] MEDS: PALIPERIDONE 6MG ER TAB (INVEGA) PO SCH (09:20)
[2023-06-10 15:33] VITALS: BP 124/70; TEMP 97.7; O2SAT 96
[2023-06-11 06:19] VITALS: BP 125/71; TEMP 97.8
[2023-06-11] MEDS: PALIPERIDONE 6MG ER TAB (INVEGA) PO SCH (08:52)
[2023-06-11 18:00] VITALS: BP 120/72; TEMP 98.4
[2023-06-12] MEDS ORDERED: PALI1TAB3 PO (06:56)
[2023-06-12 06:59] VITALS: BP 130/91; TEMP 97.8; O2SAT 95
[2023-06-12] MEDS: PALIPERIDONE 6MG ER TAB (INVEGA) PO SCH (09:03)
== END 2023-06-12 11:30 | disposition home or self-care (01) | DRG 885 ==
LOC: M ED 16:46 → M ED INP 06-04 13:08 → M PSY 06-04 14:28
PROVIDERS: ADMIT Psychiatry & Neurology Child & Adolescent Psychiatry; ATTEND Student in an Organized Health Care Education/Training Program
DX: F20.9 Schizophrenia, unspecified (principal); Z91.119 Patient's noncompliance with dietary regimen due to unspecified reason; Z91.040 Latex allergy status; E78.5 Hyperlipidemia, unspecified; E87.6 Hypokalemia